=== PATIENT | female | born 1935 | race Caucasian/White ===

== ENCOUNTER 2018-01-27 10:23 | Observation (INO) | payer MEDICARE, OTHER ==
[2018-01-27] MEDS ORDERED: ONDANSETRON HCL/PF 2 MG/ML VIAL IV ONE ×2 (10:31→11:49)
[2018-01-27 10:50] LABS: Hematocrit 35.3 % (37.0-47.0); Hemoglobin 11.7 gm/dL (12.5-16.0); Mean Corpuscular Hemoglobin 29.2 pg (27-31); Mean Corpuscular Hgb Conc 33.1 g/dl (32-36); Mean Platelet Volume 8.7 fl (8-12.5); Neutrophil # 7.9 K/mm3 (1.3-6.0); Neutrophil % 77.5 % (42-75.0); Platelet Count 359 K/mm3 (150-450); Red Blood Count 4.01 M/mm3 (4.2-5.4); Red Cell Distribution Width 13.9 % (11.5-14.0); White Blood Count 10.2 K/mm3 (4.0-10.5)
[2018-01-27 11:02] LABS: Albumin * 3.1 gm/dl (3.4-5.0); Anion Gap 9.4 mmol/L (6.8-13.8); BUN/Creatinine Ratio 12.2 (9.0-21.6); Bilirubin, Total 0.7 mg/dL (0.0-1.1); Ca. Corrected For Albumin 9.4 mg/dL (8.4-10.2); Carbon Dioxide 29.3 mmol/L (24-32.6); Magnesium 1.4 mg/dL (1.2-2.8); Potassium 2.7 mmol/L (3.4-4.6); Total Protein 8.1 gm/dL (6.2-8.2)
[2018-01-27 11:34] LABS: Urine Bilirubin Negative (NEGATIVE); Urine Ketone Negative (NEGATIVE); Urine Protein 30 mg/dL (NEGATIVE); Urine Specific Gravity 1.025 SP.GR. (1.005-1.010); Urine Urobilinogen Normal (NORMAL)
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
[2018-01-27 11:53] LABS: Urine Appearance Slightly Cloudy (CLEAR); Urine Bacteria 3+; Urine Blood 10 /ul (NEGATIVE); Urine Color Yellow; Urine Nitrite Positive (NEGATIVE); Urine WBC 25-50 /hpf (0-5)
[2018-01-27] MEDS ORDERED: POTASSIUM BICARBONATE/CIT AC 25 MEQ TABLET.EFF PO ONE (12:03)
[2018-01-27] MEDS ORDERED: DEXTROSE 5 % IN WATER 100 ML BAG IV ONE (12:05)
[2018-01-27] MEDS: POTASSIUM CHLORIDE 20 MEQ in DEXTROSE 5%-0.5 NORMAL SALINE 990 ML IV SCH (16:37)
[2018-01-27 16:57] LABS: BUN/Creatinine Ratio 10.3 (9.0-21.6); Bilirubin, Total 0.5 mg/dL (0.0-1.1); Ca. Corrected For Albumin 9.5 mg/dL (8.4-10.2); Carbon Dioxide 31.1 mmol/L (24-32.6); Potassium 3.1 mmol/L (3.4-4.6); Total Protein 8.2 gm/dL (6.2-8.2)
[2018-01-27] MEDS: SULFAMETHOXAZOLE/TRIMETHOPRIM 1 TAB TABLET PO SCH (21:58)
--- NOTE | 2018-01-27 23:52 | HP ---
Chief Complaint - Chief Complaint Date of Service: 01/27/18 Time of Service: 16:00 Chief Complaint: Fall History of Present Illness: Samantha is an 83 yo female with history of dementia. She lives at home with her son and daughter in law. She was sitting on the toilet when they heard a thud and found her in the tub next to the toilet on her back. She complained of head pain but had no obvious signs of injury. After sitting her up out of the tub she was seen to have eye twitching and seemed to space off. Prior to this she had seemed her usual. Due to the head pain and possible trauma of hitting head in the tub she was taken to the [facility] ER. In the ER she was evaluated with head CT which was negative. She had labs showing low potassium at 2.7. Family reports she doesn't eat as much but they believe she still eats fairly well. She had a chest xray that was normal. She had a UA that was suspicious of UTI and was given rocephin. She has a history of seizures, but hasn't had an obvious seizure for years. Due to the unclear events she was given IV keppra in the ER as this episode may have been from a seizure but the family reports she continues to take her keppra at home and has not missed any doses and had no obvious signs of a seizure. At the time of my evaluation she reports feeling fine and has no concerns. Family present report she is back to her usual self. Medical History (Last Reviewed 01/27/18 @ 12:27 by Marilyn Kenney RN) Urinary incontinence (Chronic) Onset Date: Unknown Osteoarthritis (Chronic) Onset Date: Unknown Hypothyroidism (Chronic) Onset Date: Unknown Hypertension (Chronic) Onset Date: Unknown Hyperlipidemia (Chronic) Onset Date: Unknown Diverticulosis (Chronic) Onset Date: Unknown Dementia (Chronic) Onset Date: Unknown Arthritis (Chronic) Onset Date: Unknown TIA (transient ischemic attack) Onset Date: Unknown Surgical History: Surgical History (Last Reviewed 01/27/18 @ 12:27 by Marilyn Kenney RN) H/O: hysterectomy Onset Date: Unknown History of appendectomy Onset Date: Unknown History of bunionectomy of right great toe Onset Date: ~04/03/00 Mary; right bunionectomy, exostectomy History of cardiac cath Onset Date: ~1995 History of cholecystectomy Onset Date: Unknown History of esophagogastroduodenoscopy (EGD) Onset Date: ~01/05/09 [place]; Normal 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 Sanches Total knee replacement status Onset Date: ~03/19/11 Family History: Family History (Last Reviewed 01/27/18 @ 12:28 by Marilyn Kenney RN) Father , age 78 Cancer Metastatic liver cancer Mother , age 70 Myocardial infarction Social History: Patient Lives/Resources daughter Utilized Preferred Language Welsh Do you have any catholic or Yes: Yarsani cultural preference? Smoking Status Never smoker Have you smoked in the past 12 No months Alcohol Use none Drug Use none (Last Updated 01/09/18 @ 12:10 by Madelyn Sen RN) No Social History Section defined Review Of Systems (GEN) - Review of Systems Generalized/Overall Review: Absent: Weakness, Chills, Fever EENTM: Present: No Symptoms Reported Respiratory: Absent: Cough, Shortness of Breath Cardiac: Absent: Chest Pain, Edema, Palpitations, Syncope Abdominal: Absent: Nausea, Vomiting Genitourinary: Absent: Burning, Frequency Musculoskeletal: Present: No Symptoms Reported Neurological: Present: Headache - previously after falling into tub, no headache currently Skin: Present: No Symptoms Reported Immunizations: IMMUNIZATION HX Immunizations Up to Date Yes History of Influenza Vaccine Yes Hx Pneumococcal Vaccination Yes Allergies/Adverse Reactions: Allergies Allergy/AdvReac Type Severity Reaction Status Date / Time penicillin G Allergy Intermediate FACIAL/TONGUE Verified 01/27/18 12:28 SWELLING Penicillins Allergy Verified 01/27/18 12:28 lisinopril AdvReac Intermediate cough Verified 01/27/18 12:28 ciprofloxacin [From Cipro] AdvReac Mild Nausea Verified 01/27/18 12:28 ciprofloxacin HCl AdvReac Mild Nausea Verified 01/27/18 12:28 [From Cipro] Home Medications: HOME MEDICATIONS Aspirin [Ecotrin] 325 mg PO DAILY 01/01/13 [Last Taken Unknown] memantine 10 mg tablet 10 mg PO QAM #90 tab 11/05/17 [Last Taken Unknown] amlodipine 10 mg tablet 10 mg PO DAILY #90 tab 11/19/17 [Last Taken Unknown] hydrochlorothiazide 25 mg tablet 25 mg PO DAILY #90 tab 12/18/17 [Last Taken Unknown] levetiracetam 500 mg tablet 500 mg PO BID #180 tab 12/18/17 [Last Taken Unknown] losartan 50 mg tablet 50 mg PO BID #60 tab 12/18/17 [Last Taken Unknown] metoprolol tartrate 50 mg tablet 50 mg PO DAILY #90 tab 12/18/17 [Last Taken Unknown] donepezil 10 mg tablet 10 mg PO DAILY #90 tab 12/23/17 [Last Taken Unknown] albuterol sulfate HFA 90 mcg/actuation aerosol inhaler 2 puff IH Q6H PRN 01/09/18 [Last Taken Unknown] clobetasol 0.05 % topical cream 1 applic TP BID 01/09/18 [Last Taken Unknown] levothyroxine 88 mcg tablet 88 mcg PO DAILY 01/09/18 [Last Taken Unknown] magnesium hydroxide 400 mg/5 mL oral suspension 5 ml PO HS PRN 01/09/18 [Last Taken Unknown] Exam - Exam Vital Signs: Vital Signs - Last Taken Temp 36.5 C 01/27/18 21:00 Pulse 85 01/27/18 21:00 Resp 18 01/27/18 21:00 BP 140/81 01/27/18 21:00 Pulse Ox 94 01/27/18 21:00 Constitutional: Present: Alert, Cooperative. Absent: Oriented x3 ENT Exam: Present: hard of hearing Eye Exam: bilateral eye: normal inspection Respiratory: Present: lungs clear, normal breath sounds Cardiovascular/Chest: Present: regular rate, rhythm, no murmur Abdomen: Present: Normal bowel sounds, soft, nontender, nondistended, no rebound tenderness Skin Exam: Present: normal color, warm/dry, no cyanosis Neurologic: Present: no motor/sensory deficits, alert, normal mood/affect Eye contact: Present: cooperative, good eye contact, normal speech Diagnostic Studies: Abnormal Lab Results 01/27/18 01/27/18 01/27/18 Range/Units 10:46 10:46 11:08 RBC 4.01 L (4.2-5.4) M/mm3 Hgb 11.7 L (12.5-16.0) gm/dL Hct 35.3 L (37.0-47.0) % Immature Gran % (Auto) 1.10 H (0.001-0.429) % Immature Gran # (Auto) 0.11 H (0.000-0.0310) K/mm3 Neutrophils % 77.5 H (42-75.0) % Lymphocytes % 13.3 L (20-51) % Neutrophils # 7.9 H (1.3-6.0) K/mm3 Lymphocytes # 1.36 L (1.5-3.5) k/mm3 Potassium 2.7 L (3.4-4.6) mmol/L Est GFR (Non-Af Amer) 44 L (60-130) mL/min Random Glucose 136 H (70-110) mg/dL Albumin 3.1 L (3.4-5.0) gm/dl Urine Protein 30 H (NEGATIVE) mg/dL Urine Blood 10 H (NEGATIVE) /ul Urine Nitrate Positive H (NEGATIVE) Prot Sulfosalicylic Acd 2+ H (0) mg/dL Ur Leukocyte Esterase 75 H (NEGATIVE) /ul Urine RBC 5-10 H (0-5) /hpf Urine WBC 25-50 H (0-5) /hpf Urine Bacteria 3+ H (NONE) 01/27/18 Range/Units 16:42 RBC (4.2-5.4) M/mm3 Hgb (12.5-16.0) gm/dL Hct (37.0-47.0) % Immature Gran % (Auto) (0.001-0.429) % Immature Gran # (Auto) (0.000-0.0310) K/mm3 Neutrophils % (42-75.0) % Lymphocytes % (20-51) % Neutrophils # (1.3-6.0) K/mm3 Lymphocytes # (1.5-3.5) k/mm3 Potassium 3.1 L (3.4-4.6) mmol/L Est GFR (Non-Af Amer) 43 L (60-130) mL/min Random Glucose 121 H (70-110) mg/dL Albumin 3.0 L (3.4-5.0) gm/dl Urine Protein (NEGATIVE) mg/dL Urine Blood (NEGATIVE) /ul Urine Nitrate (NEGATIVE) Prot Sulfosalicylic Acd (0) mg/dL Ur Leukocyte Esterase (NEGATIVE) /ul Urine RBC (0-5) /hpf Urine WBC (0-5) /hpf Urine Bacteria (NONE) Laboratory Results WBC 10.2 K/mm3 (4.0-10.5) 01/27/18 10:46 RBC 4.01 M/mm3 (4.2-5.4) L 01/27/18 10:46 Hgb 11.7 gm/dL (12.5-16.0) L 01/27/18 10:46 Hct 35.3 % (37.0-47.0) L 01/27/18 10:46 MCV 88.0 fl (78-100) 01/27/18 10:46 MCH 29.2 pg (27-31) 01/27/18 10:46 MCHC 33.1 g/dl (32-36) 01/27/18 10:46 RDW 13.9 % (11.5-14.0) 01/27/18 10:46 Plt Count 359 K/mm3 (150-450) 01/27/18 10:46 MPV 8.7 fl (8-12.5) 01/27/18 10:46 Immature Gran % (Auto) 1.10 % (0.001-0.429) H 01/27/18 10:46 Immature Gran # (Auto) 0.11 K/mm3 (0.000-0.0310) H 01/27/18 10:46 Neutrophils % 77.5 % (42-75.0) H 01/27/18 10:46 Lymphocytes % 13.3 % (20-51) L 01/27/18 10:46 Monocytes % 5.1 % (0.0-9) 01/27/18 10:46 Eosinophils % 2.2 % (0.0-3.0) 01/27/18 10:46 Basophils % 0.8 % (0.0-1.0) 01/27/18 10:46 Nucleated RBC % 0.0 k/mm3 (0-1) 01/27/18 10:46 Neutrophils # 7.9 K/mm3 (1.3-6.0) H 01/27/18 10:46 Lymphocytes # 1.36 k/mm3 (1.5-3.5) L 01/27/18 10:46 Monocytes # 0.5 k/mm3 (0.0-1.0) 01/27/18 10:46 Eosinophils # 0.2 k/mm3 (0.0-0.7) 01/27/18 10:46 Absolute Basophils 0.1 k/mm3 (0.0-0.1) 01/27/18 10:46 Sodium 136 mmol/L (132-142) 01/27/18 16:42 Plasma Sodium 136 mmol/L (130-142) 01/27/18 16:42 Potassium 3.1 mmol/L (3.4-4.6) L 01/27/18 16:42 Chloride 99 mmol/L (97-106) 01/27/18 16:42 Carbon Dioxide 31.1 mmol/L (24-32.6) 01/27/18 16:42 Anion Gap 9.0 mmol/L (6.8-13.8) 01/27/18 16:42 BUN 13 mg/dL (3-23) 01/27/18 16:42 Creatinine 1.26 mg/dL (0.4-1.4) 01/27/18 16:42 Est GFR (Non-Af Amer) 43 mL/min (60-130) L 01/27/18 16:42 BUN/Creatinine Ratio 10.3 (9.0-21.6) 01/27/18 16:42 Random Glucose 121 mg/dL (70-110) H 01/27/18 16:42 Calcium 9.0 mg/dL (7.9-10.9) 01/27/18 16:42 Calcium Adj for Albumin 9.5 mg/dL (8.4-10.2) 01/27/18 16:42 Magnesium 1.4 mg/dL (1.2-2.8) 01/27/18 10:46 Total Bilirubin 0.5 mg/dL (0.0-1.1) 01/27/18 16:42 AST 15 U/L (0-48) 01/27/18 16:42 ALT 25 U/L (19-67) 01/27/18 16:42 Alkaline Phosphatase 91 U/L (50-170) 01/27/18 16:42 Total Protein 8.2 gm/dL (6.2-8.2) 01/27/18 16:42 Albumin 3.0 gm/dl (3.4-5.0) L 01/27/18 16:42 Urine Color Yellow 01/27/18 11:08 Urine Appearance Slightly cloudy (CLEAR) 01/27/18 11:08 Urine pH 6.0 pH (5.0-7.0) 01/27/18 11:08 Ur Specific [place] 1.025 SP.GR. (1.005-1.010) 01/27/18 11:08 Urine Protein 30 mg/dL (NEGATIVE) H 01/27/18 11:08 Urine Glucose (UA) Negative mg/dL (NEGATIVE) 01/27/18 11:08 Urine Ketones Negative mg/dL (NEGATIVE) 01/27/18 11:08 Urine Blood 10 /ul (NEGATIVE) H 01/27/18 11:08 Urine Nitrate Positive (NEGATIVE) H 01/27/18 11:08 Urine Bilirubin Negative mg/dl (NEGATIVE) 01/27/18 11:08 Prot Sulfosalicylic Acd 2+ mg/dL (0) H 01/27/18 11:08 Urine Urobilinogen Normal EU/dl (NORMAL) 01/27/18 11:08 Ur Leukocyte Esterase 75 /ul (NEGATIVE) H 01/27/18 11:08 Urine RBC 5-10 /hpf (0-5) H 01/27/18 11:08 Urine WBC 25-50 /hpf (0-5) H 01/27/18 11:08 Ur Epithelial Cells None seen /hpf (0-5) 01/27/18 11:08 Urine Bacteria 3+ (NONE) H 01/27/18 11:08 Urine Culture Comments Culture to follow 01/27/18 11:08 Assessment/Plan - Narrative Narrative: Samantha is an 83 yo with: 1) Fall - She fell off toilet into bath tub. No evidence of injury, head CT shows no acute injury 2) Hypokalemia - 2.7, Potentially from poor intake. Will replace and monitor. 3) UTI - Urine suspicious for UTI. Give rocephin in ER, will start on bactrim. Monitor urine culture. This could have contributed to poor appetite and fall. 4) Seizure history - I do not think she has had a new seizure. Will continue her home Keppra and monitor. 5) Dementia - Per family she is currently at her baseline. 6) Social - Expect 1 midnight stay to replace potassium, monitor overnight and d ischarge tomorrow. - Assessment/Plan (1) UTI (urinary tract infection) Problem: Acute Qualifiers: Urinary tract infection type: site unspecified Hematuria presence: without hematuria Qualified Code(s): N39.0 - Urinary tract infection, site not specified (2) Hypokalemia Problem: Acute (3) Seizure disorder Problem: Acute (4) Dementia Problem: Chronic
[2018-01-28] MEDS: POTASSIUM CHLORIDE 20 MEQ in DEXTROSE 5%-0.5 NORMAL SALINE 990 ML IV SCH (06:41)
[2018-01-28 09:12] LABS: Hematocrit 35.4 % (37.0-47.0); Hemoglobin 11.4 gm/dL (12.5-16.0); Mean Cell Volume 90.3 fl (78-100); Mean Corpuscular Hemoglobin 29.1 pg (27-31); Mean Corpuscular Hgb Conc 32.2 g/dl (32-36); Mean Platelet Volume 8.7 fl (8-12.5); Neutrophil # 7.3 K/mm3 (1.3-6.0); Neutrophil % 79.3 % (42-75.0); Platelet Count 374 K/mm3 (150-450); Red Blood Count 3.92 M/mm3 (4.2-5.4); Red Cell Distribution Width 14.3 % (11.5-14.0); White Blood Count 9.3 K/mm3 (4.0-10.5)
[2018-01-28] MEDS: SULFAMETHOXAZOLE/TRIMETHOPRIM 1 TAB TABLET PO SCH (09:14)
[2018-01-28 09:31] LABS: Albumin * 2.9 gm/dl (3.4-5.0); Anion Gap 10.1 mmol/L (6.8-13.8); BUN/Creatinine Ratio 8.1 (9.0-21.6); Bilirubin, Total 0.4 mg/dL (0.0-1.1); Ca. Corrected For Albumin 9.2 mg/dL (8.4-10.2); Calcium * 8.6 mg/dL (7.9-10.9); Carbon Dioxide 30.7 mmol/L (24-32.6); Potassium 2.8 mmol/L (3.4-4.6)
[2018-01-28] MEDS ORDERED: POTASSIUM CHLORIDE 20 MEQ TABLET.SA PO ONE (10:13)
[2018-01-28] MEDS ORDERED: MAGNESIUM HYDROXIDE 30 ML UDC PO PRN (10:14)
[2018-01-28] MEDS ORDERED: MEMANTINE HCL 10 MG TABLET PO SCH (10:14)
[2018-01-28] MEDS ORDERED: HYDROCHLOROTHIAZIDE 25 MG TABLET PO SCH (10:15)
[2018-01-28] MEDS ORDERED: levETIRAcetam 500 MG TABLET PO SCH (10:15)
[2018-01-28] MEDS ORDERED: LOSARTAN POTASSIUM 50 MG TABLET PO SCH (10:15)
[2018-01-28] MEDS ORDERED: METOPROLOL TARTRATE 50 MG TABLET PO SCH (10:15)
[2018-01-28] MEDS ORDERED: amLODIPine BESYLATE 10 MG TABLET PO SCH (10:15)
[2018-01-28] MEDS ORDERED: LEVOTHYROXINE SODIUM 88 MCG TABLET PO SCH (10:15)
[2018-01-28] MEDS ORDERED: DONEPEZIL HCL 10 MG TABLET PO SCH (10:15)
[2018-01-28] MEDS ORDERED: ASPIRIN 325 MG TABLET.DR PO SCH (10:15)
[2018-01-28] MEDS ORDERED: POTASSIUM CHLORIDE IN WATER 100 ML IV ONE (10:17)
[2018-01-28] MEDS ORDERED: POTASSIUM CHLORIDE IN WATER 100 ML IV SCH (14:00)
[2018-01-28 15:28] LABS: Albumin * 2.9 gm/dl (3.4-5.0); Anion Gap 7.8 mmol/L (6.8-13.8); BUN/Creatinine Ratio 8.5 (9.0-21.6); Bilirubin, Total 0.4 mg/dL (0.0-1.1); Ca. Corrected For Albumin 9.4 mg/dL (8.4-10.2); Calcium * 8.8 mg/dL (7.9-10.9); Carbon Dioxide 30.3 mmol/L (24-32.6); Potassium 3.1 mmol/L (3.4-4.6)
--- NOTE | 2018-01-28 16:37 | DS ---
(1) UTI (urinary tract infection) Problem: Acute Qualifiers: Urinary tract infection type: site unspecified Hematuria presence: without hematuria Qualified Code(s): N39.0 - Urinary tract infection, site not specified (2) Hypokalemia Problem: Acute (3) Seizure disorder Problem: Acute (4) Dementia Problem: Chronic Description of Stay: Samantha is an 83 yo female admitted for hypokalemia, UTI, and fall. On Admission her potassium was 2.7, that has improved to 3.1. She typically has a baseline near 3.3. Will plan to send her home on oral potassium and follow up with Dr. Mccullough for recheck in 1 week. She also has evidence of UTI. Will treat with bactrim DS BID x 5 days. There is some question as to whether she had a seizure. I do not believe that she did and will not adjust her Keppra dosing. She will remain on all her usual home medications with the addition of bactrim and a weeks worth of potassium. She can follow up with Dr. Mccullough to see if she needs potassium added to her daily regimen. Procedures Performed: none Results and Findings: Pending Mircobiology Results 01/27/18 11:54 Urine,Clean Catch Urine Culture - Preliminary Gram Negative Bacilli Lab Pending Results 01/27/18 10:46: WBC 10.2, RBC 4.01 L, Hgb 11.7 L, Hct 35.3 L, MCV 88.0, MCH 29.2, MCHC 33.1, RDW 13.9, Plt Count 359, MPV 8.7, Immature Gran % (Auto) 1.10 H, Immature Gran # (Auto) 0.11 H, Neutrophils % 77.5 H, Lymphocytes % 13.3 L, Monocytes % 5.1, Eosinophils % 2.2, Basophils % 0.8, Nucleated RBC % 0.0, Neutrophils # 7.9 H, Lymphocytes # 1.36 L, Monocytes # 0.5, Eosinophils # 0.2, Absolute Basophils 0.1 01/27/18 10:46: Sodium 135, Plasma Sodium 136, Potassium 2.7 L, Chloride 99, Carbon Dioxide 29.3, Anion Gap 9.4, BUN 15, Creatinine 1.23, Est GFR (Non-Af Amer) 44 L, BUN/Creatinine Ratio 12.2, Random Glucose 136 H, Calcium 9.0, Calcium Adj for Albumin 9.4, Magnesium 1.4, Total Bilirubin 0.7, AST 15, ALT 21, Alkaline Phosphatase 87, Total Protein 8.1, Albumin 3.1 L 01/27/18 11:08: Urine Color Yellow, Urine Appearance Slightly cloudy, Urine pH 6.0, Ur Specific [place] 1.025, Urine Protein 30 H, Urine Glucose (UA) Negative, Urine Ketones Negative, Urine Blood 10 H, Urine Nitrate Positive H, Urine Bilirubin Negative, Prot Sulfosalicylic Acd 2+ H, Urine Urobilinogen Normal, Ur Leukocyte Esterase 75 H, Urine RBC 5-10 H, Urine WBC 25-50 H, Ur Epithelial Cells None seen, Urine Bacteria 3+ H, Urine Culture Comments Culture to follow 01/27/18 16:42: Sodium 136, Plasma Sodium 136, Potassium 3.1 L, Chloride 99, Carbon Dioxide 31.1, Anion Gap 9.0, BUN 13, Creatinine 1.26, Est GFR (Non-Af Amer) 43 L, BUN/Creatinine Ratio 10.3, Random Glucose 121 H, Calcium 9.0, Calcium Adj for Albumin 9.5, Total Bilirubin 0.5, AST 15, ALT 25, Alkaline Phosphatase 91, Total Protein 8.2, Albumin 3.0 L 01/28/18 09:10: WBC 9.3, RBC 3.92 L, Hgb 11.4 L, Hct 35.4 L, MCV 90.3, MCH 29.1, MCHC 32.2, RDW 14.3 H, Plt Count 374, MPV 8.7, Immature Gran % (Auto) 0.40, Immature Gran # (Auto) 0.04 H, Neutrophils % 79.3 H, Lymphocytes % 13.3 L, Monocytes % 4.6, Eosinophils % 1.9, Basophils % 0.5, Nucleated RBC % 0.0, Neutrophils # 7.3 H, Lymphocytes # 1.23 L, Monocytes # 0.4, Eosinophils # 0.2, Absolute Basophils 0.1 01/28/18 09:10: Sodium 136, Plasma Sodium 137, Potassium 2.8 L, Chloride 98, Carbon Dioxide 30.7, Anion Gap 10.1, BUN 11, Creatinine 1.35, Est GFR (Non-Af Amer) 40 L, BUN/Creatinine Ratio 8.1 L, Random Glucose 161 H D, Calcium 8.6, Calcium Adj for Albumin 9.2, Total Bilirubin 0.4, AST 15, ALT 21, Alkaline Phosphatase 85, Total Protein 8.0, Albumin 2.9 L 01/28/18 15:13: Sodium 133, Plasma Sodium 133, Potassium 3.1 L, Chloride 98, Carbon Dioxide 30.3, Anion Gap 7.8, BUN 11, Creatinine 1.29, Est GFR (Non-Af Amer) 42 L, BUN/Creatinine Ratio 8.5 L, Random Glucose 111 H D, Calcium 8.8, Calcium Adj for Albumin 9.4, Total Bilirubin 0.4, AST 15, ALT 24, Alkaline Phosphatase 82, Total Protein 8.0, Albumin 2.9 L Discharge Location: Home Disposition: Home self-care Condition: Good Discharge Activity: Activity as tolerated Discharge Diet: General/regular food Referrals: Maya Mccullough MD [Primary Care Provider] - One Week Problem Oriented Discharge Instructions to Patient/Family: Hypokalemia, Urinary Tract Infection, Adult, [id number] Additional Patient Instructions (free text): -Please make TCM appointment unless half-way discharge. Thank you! [employer] @ [phone]. Prescriptions (Any new or edited meds): Potassium Chloride 10 meq PO DAILY #7 tab.er.prt Sulfamethoxazole/Trimethoprim [Bactrim] 1 tab PO BID #8 tablet Complete Home Medications List: Complete Home Medication List: Aspirin [Aspirin Enteric Coated] 325 mg PO DAILY 01/01/13 memantine 10 mg tablet 10 mg PO QAM #90 tab 11/05/17 amlodipine 10 mg tablet 10 mg PO DAILY #90 tab 11/19/17 hydrochlorothiazide 25 mg tablet 25 mg PO DAILY #90 tab 12/18/17 levetiracetam 500 mg tablet 500 mg PO BID #180 tab 12/18/17 losartan 50 mg tablet 50 mg PO BID #60 tab 12/18/17 metoprolol tartrate 50 mg tablet 50 mg PO DAILY #90 tab 12/18/17 donepezil 10 mg tablet 10 mg PO DAILY #90 tab 12/23/17 albuterol sulfate HFA 90 mcg/actuation aerosol inhaler 2 puff IH Q6H PRN 01/09/18 clobetasol 0.05 % topical cream 1 applic TP BID 11/01/18 levothyroxine 88 mcg tablet 88 mcg PO DAILY 01/09/18 magnesium hydroxide 400 mg/5 mL oral suspension 5 ml PO HS PRN 01/09/18 Potassium Chloride 10 meq PO DAILY #7 tab.er.prt 01/28/18 Sulfamethoxazole/Trimethoprim [Bactrim] 1 tab PO BID #8 tablet 01/28/18
[2018-01-28 17:08] VITALS: BP 151/62
== END 2018-01-28 17:22 | disposition home or self-care (01) ==
LOC: ER 10:23 → MS 10:23
PROVIDERS: ADMIT Family Medicine; ATTEND Family Medicine
DX: R53.83 Other fatigue
CPT/HCPCS: 36415; 71020; 71046; 80053; 81001; 83735; 85025; 87077; 87086; 87186; 96361; 96365; 96375; 96376; 99285; G0378; J2405